=== PATIENT | female | born 1970 | race Caucasian/White ===

== ENCOUNTER → 2018-01-20 07:40 | Outpatient (CLI) | payer MEDICAID, SELFPAY ==
[2018-01-20 08:06] LABS: Basophils % 0.4 % (0.1-2.0); Eosinophils # 0.1 K/mm3 (0.0-0.4); Eosinophils % 2.2 % (0.1-12.0); Hematocrit 47.3 % (37.0-47.0); Hemoglobin 15.4 g/dL (12.2-16.2); Lymphocytes # 2.4 K/mm3 (0.7-4.5); Lymphocytes % 37.9 K/mm3 (10-50); Mean Corpuscular HGB Conc 32.6 g/dL (31.8-35.4); Mean Corpuscular Hemoglobin 29.2 pg (27.0-31.2); Mean Corpuscular Volume 89.5 fl (81-99); Mean Platelet Volume 7.4 fl (7.4-10.4); Monocytes # 0.3 K/mm3 (0.1-1.0); Monocytes % 5.3 % (1.7-9.3); Neutrophils # 3.4 K/mm3 (1.8-7.8); Neutrophils % 54.1 % (37.0-80.0); Platelet Count 370 K/mm3 (142-424); Red Blood Count 5.28 M/mm3 (4.20-5.40); Red Cell Distribution Width 12.6 % (11.5-17.5); White Blood Count 6.2 K/mm3 (4.8-10.8)
[2018-01-20 08:24] LABS: Alanine Aminotransferase 24 U/L (12-78); Albumin Level 3.6 gm/dL (3.4-5.0); Albumin/Globulin Ratio 0.9 (1.1-1.8); Alkaline Phosphatase 153 U/L (46-116); Anion Gap 10.6 mEq/L (5-15); Aspartate Amino Transferase 13 U/L (15-37); Bilirubin,Total 0.4 mg/dL (0.2-1.0); Blood Urea Nitrogen 8 mg/dL (7-18); Calcium 8.7 mg/dL (8.5-10.1); Carbon Dioxide 27 mmol/L (21.0-32.0); Chloride 105 mmol/L (98-107); Chol/HDL Ratio 4.3 (1-3.5); Cholesterol 173 mg/dL (140-200); Creatinine,Serum 0.91 mg/dL (0.55-1.02); Estimated Glomerular Filt Rate 67 ml/min (>60); Free T4 (Free Thyroxine) 0.98 ng/dl (0.76-1.46); GFR (African American) 81 ML/MIN (>60); Globulin 3.8 gm/dl (1.3-3.2); Glucose 101 mg/dL (74-106); HDL Cholesterol 40 mg/dL (29-89); LDL Cholesterol 111 mg/dL (0-130); Potassium 4.6 mmoL/L (3.5-5.1); Sodium 138 mmol/L (136-145); Thyroid Stimulating Hormone 2.53 uIU/ml (0.358-3.740); Total Protein,Serum 7.4 gm/dL (6.4-8.2); Triglycerides 108 mg/dL (30-200); VLDL Cholesterol 22 mg/dL (0-40)
== END ==
PROVIDERS: PCP Internal Medicine Adolescent Medicine; Visit Provider Nurse Practitioner Family
DX: I10 Essential (primary) hypertension (principal); F41.8 Other specified anxiety disorders; Z68.32 Body mass index [BMI] 32.0-32.9, adult
CPT/HCPCS: 36415; 80053; 80061; 84439; 84443; 85025

== ENCOUNTER → 2018-11-06 09:20 | Outpatient (CLI) | payer MEDICAID, SELFPAY ==
--- NOTE | 2018-11-06 09:23 | US_ITS ---
US transvaginal HISTORY: ITS.REASON: Pelvic Pain ORDERING PHYSICIAN: Chu Schuler MD PATIENT AGE: 48 years Comparison: None FINDINGS: There has been a prior hysterectomy. No pelvic mass apparent. The right ovary is 2 x 1.6 cm. The left ovary is 1.4 x 1.9 cm. No adnexal mass or pelvic fluid evident. IMPRESSION: Prior hysterectomy otherwise negative pelvic ultrasound
== END ==
PROVIDERS: PCP Internal Medicine Adolescent Medicine; Visit Provider Obstetrics & Gynecology
DX: R10.2 Pelvic and perineal pain (principal)
CPT/HCPCS: 76830

== ENCOUNTER → 2018-11-15 08:18 | Outpatient (CLI) | payer MEDICAID, SELFPAY ==
--- NOTE | 2018-11-15 08:20 | MM_ITS ---
MM Dig screening mamm BI w/CAD CAD Screening COMPARISON: Digital mammograms with CAD 05/20/2016 and 04/29/2015 INDICATION: There is no personal or family history of breast cancer TECHNIQUE: Standard CC and MLO images were obtained. R2 CAD reviewed. FINDINGS: Moderate diffuse heterogenic fibroglandular densities are seen throughout both breasts. There is an asymmetric glandular density lower inner quadrant of the right breast which is stable. There is a stable benign-appearing nodular density upper quadrant right breast best seen on MLO view. There is no new or suspicious lesion in either breast and there are no suspicious microcalcifications. IMPRESSION: Stable exam with no suspicious lesion seen BI-RADS Category: 2 Benign Finding(s) RECOMMENDED FOLLOW-UP: 1YR - 1 YEAR FOLLOW-UP (A letter has been sent to the patient regarding results of the study.)
== END ==
PROVIDERS: PCP Internal Medicine Adolescent Medicine; Visit Provider Obstetrics & Gynecology
DX: Z12.31 Encounter for screening mammogram for malignant neoplasm of breast (principal)
CPT/HCPCS: 77067

== ENCOUNTER → 2020-07-21 20:17 | Outpatient (CLI) | payer OTHER, SELFPAY ==
[2020-07-23 07:57] LABS: Covid-19 Nasal PCR Sendout Lex NOT DETECTED
== END ==
PROVIDERS: PCP Internal Medicine Adolescent Medicine; Visit Provider Internal Medicine Adolescent Medicine
DX: Z03.818 Encounter for observation for suspected exposure to other biological agents ruled out (principal); J06.9 Acute upper respiratory infection, unspecified; R05 Cough
CPT/HCPCS: U0004

== ENCOUNTER → 2020-09-15 12:58 | Outpatient (CLI) | payer OTHER, SELFPAY ==
[2020-09-15 13:30] VITALS: PULSE 76; PULSE 80
== END ==
PROVIDERS: PCP Internal Medicine Adolescent Medicine; Visit Provider Internal Medicine Adolescent Medicine
DX: R06.02 Shortness of breath (principal)
CPT/HCPCS: 94060; 94640; 94727; 94729

== ENCOUNTER → 2020-09-29 14:27 | Outpatient (CLI) | payer OTHER, SELFPAY ==
--- NOTE | 2020-09-29 14:29 | CA_ITS ---
APPROVED REPORT EXAM: Comprehensive 2D, Doppler, and color-flow Echocardiogram [employer] Consultant: Nakia Cota RVT Ht: 5 ft 6 in Wt: 210lbs BSA: 2.04 BP: 134/90 mmHg Indications: SOA,HTN 2D Dimensions LVOT 1.98 cm (M/F) 1.5-2.5 M-Mode Dimensions RVDd 2.58 cm (0.9-2.6) LA Diam 3.93 cm (1.9-4.0) LVDd 5.17 cm (3.5-5.7) Ao Diam 2.90 cm (2.0-3.7) LVDs 3.65 cm (3.5-5.7) IVSd 0.72 cm (0.6-1.1) PWd 0.57 cm (0.6-1.1) EF (Teich) 55.90% FS 29.40% EDV (Teich) 127.80 mL ESV (Teich) 56.30 mL LV Diastology E Decel Time 227.00 (160-240 msec) E/A Ratio 1.0 MED E' 6.30 (< 7 cm/sec) E'/MED E' Ratio 13.22 (>14) LAT E' 13.60 (<10 cm/sec) E/LAT E' Ratio 6.13 (>14) Mitral Valve MV E Max Contreras. 83.00 (40-130 cm/s) MV A Velocity 83.00 (40-130 cm/s) E/A Ratio 1.00 MV Decel. Time 227.00 (160-240 ms) MV PHT 66.00 ms Pulmonary Valve PV Peak Velocity 95.00 (50-150 cm/s) Tricuspid Valve TR P. Velocity 193.00 cm/s Left Ventricle Left atrium is normal size, left ventricle is normal size, there is no concentric left ventricular hypertrophy, visually estimated ejection fraction 55% with no regional wall motion abnormality, diastolic parameters are inconclusive. Right Ventricle Right atrium and right ventricle are normal size and contractility. Aortic Valve Aortic valve is minimally thickened and fibrosed, there is no aortic stenosis or aortic insufficiency. Mitral Valve Mitral valve is grossly normal, there is mild mitral regurgitation. Tricuspid Valve Tricuspid valve is grossly normal, there is mild tricuspid regurgitation, tricuspid regurgitation jet velocity is inadequate for calculation of the right ventricular systolic pressure. Pulmonic Valve Pulmonic valve is poorly visualized. Great Vessels Aortic root is normal size. Pericardium No significant pericardial effusion noted. Conclusion 1. Normal left ventricular size, preserved left ventricular systolic function, visually estimated ejection fraction 55% with no regional wall motion abnormality, diastolic parameters are inconclusive. 2. Mild mitral and tricuspid regurgitation. 3. No significant pericardial effusion noted. Electronically signed by : Dennis Yoder, 09/30/2020 05:45:29
== END ==
PROVIDERS: PCP Internal Medicine Adolescent Medicine; Visit Provider Internal Medicine Adolescent Medicine
DX: R06.02 Shortness of breath (principal)
CPT/HCPCS: 93306

== ENCOUNTER 2022-09-20 11:53 | Emergency (ER) | payer OTHER, SELFPAY ==
[2022-09-20 11:53] VITALS: BP 135/88; PULSE 103; RESP 18; TEMP 36.8; O2SAT 97; BMI 35.5
--- NOTE | 2022-09-20 11:55 | XR_ITS ---
FINAL REPORT CLINICAL HISTORY: fall, knee pain FINDINGS: 3 views of the right knee were obtained. There is no acute fracture or dislocation. The joint spaces are intact. There is no soft tissue abnormality. IMPRESSION: No acute process. Reviewed, Interpreted and Dictated by Zach Walsh MD Transcribed by Awais Patterson Authenticated and [facility]
--- NOTE | 2022-09-20 11:57 | HMH.EDGENADL ---
Discharge Plan Disposition Patient Disposition: Home, Self-Care Condition: Good Chief Complaint: PAIN Prescriptions Prescriptions: No Action Bariatric Multivitamins 45 mg iron- 800 mcg-120 mcg capsule PO clobetasol 0.05 % cream 1 applic TOPICAL DAILY Qty: 60 3RF Referrals Follow up/Referrals: Meek Batres MD [Primary Care Provider] - See instructions Rober Cantu JR, MD [Physician] - See instructions Clinical Impressions Clinical Impression: Knee sprain Instructions Patient Instructions: DI for Knee Sprain Discharge ED Provider: Pawan Crow General Adult HPI General Chief complaint: PAIN Stated complaint: fall Time Seen by Provider: 09/20/22 11:55 Mode of Arrival: EMS History of Present Illness HPI narrative: 52 yo/F without significant chronic medical issues, presents via EMS for right knee pain after fall off 2 steps from a ladder. Denies head strike, LOC, neck or back pain, numbness or tingling. She also reports small superficial laceration to the back of left ankle which was bandaged pre-hospital. She reports inability to bear weight on the right knee. Related Data Home Medications Medication Instructions Recorded Confirmed [id number] 45 mg-folic cap PO 12/07/21 12/15/21 acid 800 mcg-vit K 120 mcg capsule (Bariatric Multivitamins) Previous Rx's Medication Instructions Recorded clobetasol 0.05 % topical cream 1 applic topical DAILY #60 grams 12/15/21 Allergies Allergy/AdvReac Type Severity Reaction Status Date / Time No Known Allergies Allergy Unknown Uncoded 12/15/21 14:29 PFSH PFSH Social History Smoking Status: Never smoker alcohol intake: never substance use type: denies use current occupational status: employed Travel in the last 8 weeks: None ROS Obtained: Yes Systems reviewed as appropriate & no additional complaints except as documented Constitutional Constitutional: Reports system reviewed and no additional complaints, except as documented Eyes Eyes: Reports system reviewed and no additional complaints, except as documented ENT Ears, Nose, Mouth, and Throat: Reports system reviewed and no additional complaints, except as documented Cardiovascular Cardiovascular: Reports system reviewed and no additional complaints, except as documented Respiratory Respiratory: Reports system reviewed and no additional complaints, except as documented Gastrointestinal Gastrointestingal: Reports system reviewed and no additional complaints, except as documented Genitourinary Female Genitourinary: Reports system reviewed and no additional complaints, except as documented Musculoskeletal Musculoskeletal: Reports system reviewed and no additional complaints, except as documented Integumentary/Breasts Skin/Breast: Reports system reviewed and no additional complaints, except as documented Neurologic Neurologic: Reports system reviewed and no additional complaints, except as documented Endocrine Endocrine: Reports system reviewed and no additional complaints, except as documented Hematologic/Lymphatic Henatologic/Lymphatic: Reports system reviewed and no additional complaints, except as documented Allergic/Immunologic Allergic/Immunologic: Reports system reviewed and no additional complaints, except as documented Physical Exam General General appearance: alert and in no apparent distress Head Head exam: atraumatic, normocephalic and normal inspection Eye Eye exam: Present normal appearance, PERRL and EOMI ENT ENT exam: Present normal exam, normal oropharynx, mucous membranes moist, TM's normal bilaterally and normal external ear exam Neck Neck exam: Present normal inspection, full ROM and trachea midline; Absent meningismus or lymphadenopathy Chest Chest inspection: Present normal inspection and symmetric chest wall rise; Absent tenderness Respiratory Respiratory exam: Present normal lung sounds bilaterally; Absent respiratory distress
[2022-09-20 12:00] VITALS: BP 139/97; PULSE 120; RESP 18; O2SAT 97
[2022-09-20 12:38] VITALS: BP 158/94; PULSE 113; RESP 18; O2SAT 98
[2022-09-20 13:37] VITALS: BP 148/64; PULSE 70; RESP 16; TEMP 36.9; O2SAT 98
== END 2022-09-20 13:38 | disposition home or self-care (01) ==
PROVIDERS: Emergency Provider Emergency Medicine; PCP Internal Medicine Adolescent Medicine
DX: S83.90XA Sprain of unspecified site of unspecified knee, initial encounter (principal)
CPT/HCPCS: 73562; 99283

== ENCOUNTER → 2022-10-06 10:38 | Outpatient (CLI) | payer OTHER, SELFPAY ==
--- NOTE | 2022-10-06 10:46 | CA_ITS ---
FINAL REPORT TECHNIQUE: Ultrasound images of the deep venous system were obtained from the right groin to the calf veins. CLINICAL HISTORY: PT FELL FROM LADDER SEVERAL WKS AGO SPRAINED RT KNEE NOW HAVING RIGHT CALF AND RT KNEE PAIN FINDINGS: The deep venous system is normally compressible. Normal flow is identified. IMPRESSION: No evidence of right lower extremity DVT. Reviewed, Interpreted and Dictated by Yahir Quinteros III, MD Transcribed by Awais Patterson Authenticated and [facility]
== END ==
PROVIDERS: PCP Internal Medicine Adolescent Medicine; Visit Provider Internal Medicine Adolescent Medicine
DX: M25.561 Pain in right knee (principal); M79.661 Pain in right lower leg
CPT/HCPCS: 93971

== ENCOUNTER 2022-11-24 08:00 | Outpatient (RCR) | payer OTHER, SELFPAY ==
--- NOTE | 2022-10-27 11:08 | HMH.PTOPEV ---
PT Outpatient Evaluation Rehab PT Outpatient Evaluation Start: 10/27/22 09:00 Freq: Status: Active Protocol: Document 10/27/22 09:00 ARLENEGRIS (Rec: 10/27/22 11:08 ZAHRA [id number]) E-signed By Karla Tolbert, PT Outpatient Therapy Subjective History Subjective History Pt is a 52 y/o female that reports onset of right knee pain on 09/20/22 following a fall while painting a roof. Pt reports she is unsure of how she landed but denies LOC or hitting her head. Pt reports she was unable to get up and had to call an ambulance who transported her to [facility] ER. Pt reports radiographs were performed without significant findings. Pt reports she was given crutches but was unable to use them so she used her mother's walker, states she was unable to put weight through the right leg for about a month. Pt reports her knee was brusied and swollen from the mid thigh to mid calf region and still swells around the knee joint with prolonged activities. Pt denies paresthesia. Pt reports she has an appointment with her PCP about this issue today . Medical History: high blood pressure, anxiety/depression Chief Complaint Pain,Stiff,Swelling,Gives out/ Unstable Symptom Type Ache,Throb,Dull Symptoms Relieved By Rest/Positioning,Heat,Ice,OTC Meds,Shaking Symptoms Aggravated By Physical Activity,Twisting, Walking Prior Functional Limitations None Current Functional Limitations Standing,Squatting,Recreation Activity,Walking,Stairs Symptom Description Constant but Variable Level of pain today (0-10) 2 Pain scale - at its best (0-10) 0 Pain scale - at its worst (0-10) 9 Hip/Knee Eval Gait Observation General Gait Pattern Observation Antalgic Gait,Decrease Weight Bear (R) Assistive Device Assistive Devices None / NA Palpation Tenderness r
--- NOTE | 2022-11-24 08:49 | HMH.RHREAS ---
Rehab Reassessment Rehab OP Re-assessment Start: 11/24/22 07:57 Freq: Status: Active Protocol: Document 11/24/22 07:57 ZAHRA (Rec: 11/24/22 08:48 ISAELZAKIGRIS [id number]) E-signed By Karla Tolbert PT Rehab Re-assessment Subjective Subjective Pt reports she feels 98% improved since starting PT. Pt reports pain at worse as 2/10 within the last week during a prolonged car ride to/from [place] but on average has 0/ 10 right knee pain. Pt reports she is doing well with most functional activities just gets a little nervous while traversing stairs due to the nature of her injury. Objective Objective Notes R knee AROM: 0-125 RLE MMT: 03/18 grossly Assessment Progress Assessment Progressing as Expected Assessment Notes Pt has attended 5 PT visits consisting of aerobic exercise , LE stretching/strengthening, HEP and modalities with good tolerance. Pt demonstrated improved R knee AROM and RLE strength this date compared to initial evaluation. Pt met all PT goals and is appropriate to d/c to independent HEP. Patient goals met ST/4 LT/8 Goals Not Met n/a Revised Goals n/a Plan Plan Discharge to independent HEP Frequency of Therapy 0 Duration of therapy 0 Time and Billing Re-Eval Time 8 Re-Eval Billing Units 1 PHYSICIAN CERTIFICATION: I certify the specified therapy services for Johnna Wilson are required, authorized, and reviewed every 30 days.
== END 2022-11-24 08:05 | disposition home or self-care (01) ==
LOC: PT 08:00
PROVIDERS: PCP Internal Medicine Adolescent Medicine; Visit Provider Nurse Practitioner Family
DX: M25.561 Pain in right knee (principal)
CPT/HCPCS: 97010; 97014; 97110; 97163; 97164; 97530; G0283

== ENCOUNTER → 2023-10-26 15:11 | Outpatient (CLI) | payer OTHER, SELFPAY ==
--- NOTE | 2023-10-26 15:15 | XR_ITS ---
FINAL REPORT TECHNIQUE: 5 views CLINICAL HISTORY: LOW BACK PAIN Fell off of a roof a year ago, persistent low back pain. COMPARISON: None FINDINGS: There is no fracture present. There is no malalignment. There are moderate anterior osteophytes at the L2-3 level. There is moderate disc degenerative change at the L5-S1 level. IMPRESSION: No acute process. Degenerative change as described above. Reviewed, Interpreted and Dictated by Zach Walsh MD Transcribed by Shea Bernabe Authenticated and [facility]
== END ==
PROVIDERS: PCP Nurse Practitioner Family; Visit Provider Nurse Practitioner Family
DX: M54.50 Low back pain, unspecified (principal); G89.29 Other chronic pain
CPT/HCPCS: 72110

== ENCOUNTER 2023-11-09 08:28 | Outpatient (RCR) | payer OTHER, SELFPAY ==
--- NOTE | 2023-11-09 09:39 | HMH.PTOPEV ---
PT Outpatient Evaluation Rehab PT Outpatient Evaluation Start: 11/09/23 08:45 Freq: Status: Active Protocol: Document 11/09/23 08:45 ISAELANDREW (Rec: 11/09/23 09:39 ZAHRA [id number]) E-signed By Karla Tolbert, PT Outpatient Therapy Subjective History Subjective History Pt is a 53 y/o female with report of acute on chronic central low back pain due to picking up her mother from the ground after she fell in early September. Pt reports overall no change in pain since the initial onset. Pt reports pain stays localized to the central low back, denies distal symptoms. Pt denies numbness/tingling or b/ b dysfunction. Pt had a lumbar spine radiograph at [facility] on with findings of There is no fracture present. There is no malalignment. There are moderate anterior osteophytes at the L2-3 level. There is moderate disc degenerative change at the L5- S1 level. Pt reports pain is aggravated by activities that cause her to bend forward such as sweeping/mopping and lifting. Pt reports she is using prescribed lidocaine patches and OTC Tylenol Arthritis which help some. Medical History: Anxiety, Hypertension New diagnosis of cancer in past 12 No months? Chief Complaint Pain Symptom Type Ache,Sharp,Dull Symptoms Relieved By Rest/Positioning,Heat,Ice,OTC Meds Symptoms Aggravated By Bending/Stooping,Physical Activity,Lifting Prior Functional Limitations None Current Functional Limitations Lifting,Squatting,Stairs, Bending/Stooping Symptom Description Intermittent Level of pain today (0-10) 0 Pain scale - at its best (0-10) 0 Pain scale - at its worst (0-10) 5 Lumbopelvic Eval Palapation tenderness bilateral lumbar spinal tenderness Yes: L4/L5/S1 Accessory Movement L-spine Vertebrae Accessory Movements Central P/A [place] that Elicit Symptoms L4 bilateral L5 bilateral S1 bilateral Range of Motion Lumbar Spine Active Flexion Range of 90 Motion (degrees) Lumbar Spine Active Extension Range of 15 Motion (degrees) Left Lumbar Spine Lateral Flexion Active 15 Range of Motion (degrees) Right Lumbar Spine Lateral Flexion 15 Active Range of Motion (degrees) Manual Muscle Test Bilateral Knee Extension Strength Grade 5 Normal Knee Flexion Strength Grade 5 Normal Hip Flexion Strength Grade 5 Normal Hip Abduction Strength Grade 4 Good Hip Adduction Strength Grade 4 Good Hip Extension Strength Grade 4- Good- Ankle Dorsiflexion Strength Grade 5 Normal DTR Rt Patellar 2+ Lt Patellar 2+ Rt Gastroc/Soleus 2+ Lt Gastroc/Soleus 2+ Altered Sensation Bilateral Comment equal and intact to light touch sensation bilaterally Special Tests Hip Scouring (Quadrant) Test Negative Left,Negative Right Hip Maciej (ARA) Test Negative Left,Negative Right Hip Piriformis Test Negative Left,Negative Right Sciatic Nerve Tension Test Negative Left,Negative Right Unilateral Straight Leg Raise (Lasegue) Negative Left,Negative Right Test Oswestry Index Section 1 Pain Intensity The pain is mild and does not vary much Section 2 Personal Care (Washing,Dresing) change my way of washing or dressing in order to avoid pain Section 3 Lifting lifting heavy weights off the floor, but I can manage if they are Section 4 Walking I have some pain when walking but it does not increase with distance Section 5 Sitting I can sit in any chair for as long as I like Section 6 Standing I cannot stand more than 1 hour without increasing pain Section 7 Sleeping I get pain in bed, but it does not prevent me from sleeping well Section 8 Social Life My social life is normal and gives me no extra pain Section 9 Traveling I get extra pain while traveling, but it does not compel me to seek al Section 10 Changing Degreee of Pain My pain fluctuates, but overall is definitely getting better Score and Risk Level Oswestry Sc 11 Oswestry Risk Level Mild Disability Outpatient Therapy Assessment Prognosis Rehab Potential Good Clinical Impression Consistent with Diagnosis Yes Short Term Goals Number of Weeks 2 Improve Ability to Bend Yes Improve Self Care/Self Management Yes Patient to be Ind w/ HEP Yes Fpc Goals Number of Weeks 4 Increase Range of Motion Yes: Improve lumbar ext and LF AROM to at least 20 Increase Strength Yes: Improve hip strength to 5 /5 grossly to assist with function Restore Ability to Lift Objects to Waist Yes: at least 20# with proper Level mechanics to assist with ADLs & prevent reinjury Improve Ability For Household Care Yes: report ability to sweep/ mop with pain 1-2/10 or less Improve Oswestry Score Yes: Improve score to 6 or less to improve overall QOL Decrease Subjective C/O Pain Yes: Improve pain at worst to 1-2/10 to improve overall QOL Outpatient Therapy Plan of Care Treatment Plan May Include Therapeutic Exercise Including Home Yes Exercise Program Manual Therapy Techniques Yes Neuromuscular Re-education Yes Therapeutic Activities to Return to Yes Previous Functional/Work Level Gait Training Yes ADL/Self Care Education Yes Mechanical Traction Yes Dry Needling Yes Thermal Modalities Yes Electrical Stimulation Yes Ultrasound/Phonophoresis Yes Iontophoresis Yes Massage Yes Eval/Re-Eval Yes Frequency Times per week 2 Duration Number of Weeks 4 Addendums This patient is a candidate for social No or vocational rehab? Patient/Guardian verbally acknowledges Yes understanding of treatment program and consents to further treatment? Patient/Guardian verbally acknowledges Yes understanding of diagnosis, prognosis and goals for treatment? Eval Complexity PT Charges 24870 - Low Complexity Shoulder/Elbow Eval Shoulder Objective Measurements Elbow Objective Measurements PHYSICIAN CERTIFICATION: I certify the specified therapy services for Johnna Wilson are required, authorized, and reviewed every 30 days.
== END 2023-11-09 10:00 | disposition home or self-care (01) ==
LOC: PT 08:28
PROVIDERS: PCP Nurse Practitioner Family; Visit Provider Nurse Practitioner Family
DX: M54.50 Low back pain, unspecified (principal)
CPT/HCPCS: 97163

== ENCOUNTER → 2023-11-21 08:17 | Outpatient (POV) | payer OTHER, SELFPAY ==
--- NOTE | 2023-11-21 08:36 | A.OFFVIS_ITS ---
HPI Data of Consult Patient: new to practice Consult date: 11/21/23 Requesting Physician: Karla Mccurdy APRN Primary Care Provider: Elizabeth Waters APRN Consult Narrative History of present illness: Ms. Wilson is a 53 year old female who presents today as a new patient. She is a referral from [facility]. Today she rates her pain a 10 out of 10. Patient states her pain is all in her low back and this has been going on since September when she had an accident and fell off a roof. Patient states that her pain at that time had ran down her right leg in and around her knee due to the way she hit however what is bothering her now is just in her back. Patient denies any radiating symptoms into her lower extremities. Patient does state the pain is worse with certain activities such as bending, twisting or lifting. Patient does state that she has a baby at home that she can even filler picker without having severe pain. Patient has tried Tylenol along with ibuprofen, heat and ice with minimal relief. Patient has had physical therapy that did help her leg and knee symptoms however she continues to go currently for her back with no additional change. Patient does state the pain interferes with her ability perform activities of daily living such as cooking and cleaning. Patient states she can even walk the floor without having severe pain and has to sit and rest. Patient denies any previous surgery or injection history. Patient has had x-ray imaging. Patient is not on any scheduled medications. Her Eber has been reviewed and is appropriate. CC: Karla Mccurdy APRN [facility] Disclaimer: The information contained in this section may have been updated after the patient was seen, as this information can be updated by other users. Medical History (Updated 11/21/23 @ 09:28 by Karla Mccurdy APRN) Anxiety HTN (hypertension) Obesity Surgical History (Updated 11/21/23 @ 08:22 by Laure Agosto RN) H/O tubal ligation History of partial hysterectomy Family History (Updated 11/21/23 @ 08:22 by Laure Agosto RN) Other Stroke Social History (Updated 11/21/23 @ 08:23 by Laure Agosto, ARNULFO) Smoking Status: Never smoker alcohol intake: never substance use type: denies use current occupational status: unemployed Travel in the last 8 weeks: None Review of Systems Review of Systems Review of systems:: pertinent systems reviewed and negative unless documented below Review of systems (narrative): Review of Systems: General: No recent weight changes, no fever, no sleep disturbances Respiratory: No cough, no shortness of air, no recurring pulmonary infections Cardiovascular/peripheral vascular: No chest pain, no palpitations, no edema, no shortness of breath Gastrointestinal: No new onset incontinence, normal bowel movements reported Genitourinary: No new onset incontinence Musculoskeletal: Low back pain Psychiatric: [Normal mood/affect] Neurological: [Denies weakness in extremities], [denies balance issues] Meds Home Medications and Allergies Home Medications Medication Instructions Recorded Confirmed Type fqldoxnq-araxkvma-yfnh 45 mg-folic 1 cap PO DAILY SUPPLIMENT 12/07/21 11/21/23 History acid 800 mcg-vit K 120 mcg capsule (Bariatric Multivitamins) clobetasol 0.05 % topical cream 1 applic topical DAILY #60 grams 12/15/21 11/21/23 Rx meloxicam 7.5 mg tablet 7.5 mg PO DAILY #14 tabs 11/21/23 Rx New Prescriptions to Start Prescriptions: Karla Rowley Allergies Allergy/AdvReac Type Severity Reaction Status Date / Time No Known Allergies Allergy Unknown Uncoded 12/15/21 14:29 Objective Narrative: Physical Exam: General: Alert and oriented x3, no acute distress, pleasant and cooperative Lungs: Respirations even and unlabored, symmetrical chest expansion Eyes: PERRL Musculoskeletal: Flexion and extension of lumbar [spine] somewhat guarded secondary to pain, [antalgic gait noted] positive Kemps test Neurological: Speech clear, no gross sensory deficit Additional findings Additional findings: TECHNIQUE: 5 views CLINICAL HISTORY: LOW BACK PAIN Fell off of a roof a year ago, persistent low back pain. COMPARISON: None FINDINGS: There is no fracture present. There is no malalignment. There are moderate anterior osteophytes at the L2-3 level. There is moderate disc degenerative change at the L5-S1 level. IMPRESSION: No acute process. Degenerative change as described above. Reviewed, Interpreted and Dictated by Zach Walsh MD Transcribed by Shea Bernabe Authenticated and [facility] Assessment and Plan *Assessment and plan (1) Degenerative disc disease, lumbar: Status: Acute Category: Medical Code(s): M51.36 - Other intervertebral disc degeneration, lumbar region (2) Low back pain: Status: Acute Qualifiers: Back pain laterality: bilateral Chronicity: acute Sciatica presence: without sciatica Qualified Code(s): M54.50 - Low back pain, unspecified Category: Medical Code(s): M54.50 - Low back pain, unspecified (3) Lumbar spondylosis: Status: Acute Category: Medical Code(s): M47.816 - Spondylosis without myelopathy or radiculopathy, lumbar region (4) Lumbar facet arthropathy: Status: Acute Category: Medical Code(s): M47.816 - Spondylosis without myelopathy or radiculopathy, lumbar region Plan Patient continues to experience significant pain in her low back and did have limited range of motion during today's exam. Patient did also have a positive Kemps test. I have discussed with the patient that she may benefit from a lumbar medial branch block bilaterally. Risk and benefits were discussed with the patient however at this time she would like to wait. Will order the patient a compounded cream and send in a 2-week supply of meloxicam 7.5 mg daily. I have counseled the patient to take this medication with food to minimize GI up set and to discontinue all other NSAIDs while taking this medication. Patient does state in the past she has had GI upset with the ibuprofen 800 mg. I have counseled her to contact our office between now and her next visit if she needs additional refills on the 2-week dose of meloxicam. Patient will return to clinic in 1 month following her imaging for reevaluation of symptoms and plan of care. Patient has been instructed to contact the clinic with any concerns before the next appointment. Dr. Yancey has reviewed this note and agrees with this plan of care. This note was dictated using voice recognition software and make contain errors or omissions.
[2023-11-21 08:57] VITALS: BP 137/88; PULSE 94; RESP 18; O2SAT 99; BMI 35.5
== END | disposition home or self-care (01) ==
PROVIDERS: PCP Nurse Practitioner Family; Visit Provider Nurse Practitioner Family
DX: M51.36 Other intervertebral disc degeneration, lumbar region (principal); M47.816 Spondylosis without myelopathy or radiculopathy, lumbar region
CPT/HCPCS: 99202; G0463

== ENCOUNTER 2023-12-14 14:48 | Outpatient (CLI) | payer OTHER, SELFPAY ==
--- NOTE | 2023-12-14 14:54 | MR_ITS ---
FINAL REPORT TECHNIQUE: Multiplanar MR without gadolinium enhancement CLINICAL HISTORY: LBP X MONTHS COMPARISON: None FINDINGS: Sagittal images show normal vertebral height. Alignment is normal. Marrow signal pattern is unremarkable. The bony canal is diffusely smaller than normal, likely congenital. L1-2: No evidence of canal stenosis or neural foraminal narrowing. L2-3: There is a minimal annular bulge present, which produces borderline canal stenosis. L3-4: There is a minimal annular bulge present, with mild facet overgrowth. There is mild canal stenosis. L4-5: A small annular bulge is present with mild facet arthropathy and mild canal stenosis. L5-S1: There is a small left lateral disc protrusion, with mild facet arthropathy and mild bilateral neural foraminal narrowing. IMPRESSION: There are mild diffuse degenerative changes, combined with a small canal which produces multilevel mild canal stenosis and neuroforaminal narrowing. Reviewed, Interpreted and Dictated by Zeus Bailey MD Transcribed by Shea Bernabe Authenticated and [facility]
== END 2023-12-14 23:59 ==
LOC: RAD 14:50
PROVIDERS: PCP Nurse Practitioner Family; Visit Provider Nurse Practitioner Family
DX: M54.50 Low back pain, unspecified (principal)
CPT/HCPCS: 72148; 76376

== ENCOUNTER 2024-01-05 13:49 | Outpatient (POV) | payer OTHER, SELFPAY ==
--- NOTE | 2024-01-05 14:38 | A.OFFVIS_ITS ---
[facility] Pain Management SOAP Note Subjective:: Patient is a pleasant 53-year-old female who presents today for follow-up of lumbar MRI. We are currently treating the patient for low back pain, lumbar facet arthropathy. Today she rates her pain a 6 out of 10. Patient denies any new trauma or injury. She states she continues to have pain in and around her low back that is worse with certain positioning such as bending, twisting or lifting. Patient does state that the compounded cream that was sent to her at our last visit has been helping and that she is needing additional refills. Patient states however the meloxicam 7.5 mg daily that we sent in did not really seem to make much improvement. Patient does state that this is an aching, throbbing sensation that is worse with increased activity. She states the pain does interfere with her ability to perform activities of daily living. Her Eber has been reviewed and is appropriate. Review of Systems: General: No recent weight changes, no fever, no sleep disturbances Respiratory: No cough, no shortness of air, no recurring pulmonary infections Cardiovascular/peripheral vascular: No chest pain, no palpitations, no edema, no shortness of breath Gastrointestinal: No new onset incontinence, normal bowel movements reported Genitourinary: No new onset incontinence Musculoskeletal: Low back pain Psychiatric: [Normal mood/affect] Neurological: [Denies weakness in extremities], [denies balance issues] Objective:: Physical Exam: General: Alert and oriented x3, no acute distress, pleasant and cooperative Lungs: Respirations even and unlabored, symmetrical chest expansion Eyes: PERRL Musculoskeletal: Flexion and extension of lumbar [spine] somewhat guarded secondary to pain, [antalgic gait noted] positive Kemps test Neurological: Speech clear, no gross sensory deficit Assessment:: Degenerative disc disease of lumbar spine with lumbar facet arthropathy, lumbar spinal stenosis Plan:: Patient continues to experience significant pain in her low back with limited range of motion of her lumbar spine and a positive Kemps test. I have discussed with patient that she may benefit from a lumbar medial branch block. Risk and benefits were discussed with patient however at this time she would like to wait. I have counseled the patient that she can call and schedule this injection over the phone if she changes her mind between now and her next visit. I will send in a prescription of baclofen 5 mg 3 times daily and meloxicam 15 mg daily with a 1 month supply of these medications. Patient will return to clinic in 1 month for reevaluation of symptoms and plan of care. Patient has been instructed to contact the clinic with any concerns before the next appointment. Dr. Yancey has reviewed this note and agrees with this plan of care. This note was dictated using voice recognition software and make contain errors or omissions. [facility] Disclaimer: The information contained in this section may have been updated after the patient was seen, as this information can be updated by other users. Medical History (Updated 11/21/23 @ 09:28 by Karla Mccurdy APRN) Anxiety HTN (hypertension) Obesity Surgical History (Updated 11/21/23 @ 08:22 by Laure Agosto RN) H/O tubal ligation History of partial hysterectomy Family History (Updated 11/21/23 @ 08:22 by Laure Agosto RN) Other Stroke Social History (Updated 11/21/23 @ 08:23 by Laure Agosto RN) Smoking Status: Never smoker alcohol intake: never substance use type: denies use current occupational status: unemployed Travel in the last 8 weeks: None
[2024-01-05 15:35] VITALS: BP 153/99; PULSE 87; RESP 18; O2SAT 97; BMI 35.5
== END 2024-01-05 23:59 | disposition home or self-care (01) ==
PROVIDERS: PCP Nurse Practitioner Family; Visit Provider Nurse Practitioner Family
DX: M51.36 Other intervertebral disc degeneration, lumbar region (principal); M47.816 Spondylosis without myelopathy or radiculopathy, lumbar region; M48.061 Spinal stenosis, lumbar region without neurogenic claudication
CPT/HCPCS: 99212; G0463

== ENCOUNTER 2024-05-25 14:11 | Outpatient (CLI) | payer OTHER, SELFPAY ==
--- NOTE | 2024-05-25 14:16 | MM_ITS ---
PROCEDURE INFORMATION: Exam: MG Bilateral Screening 3D Mammography Exam date and time: 05/25/2024 2:00 PM Age: 53 years old Clinical indication: Screening examination TECHNIQUE: Imaging protocol: Bilateral Screening tomosynthesis and 2D mammography including computer-aided detection (CAD) when performed. COMPARISON: 1. MG MM DIG SCREENING MAMM BI W/CAD 05/25/2024 2:00 PM 2. MG SCBI MM Dig screening mamm BI w/CAD 11/15/2018 8:36 AM 3. MG DMSB DIG MAMM-SCREEN JOSE 05/20/2016 4:11 PM FINDINGS: MAMMOGRAPHY: Breast composition: There are scattered areas of fibroglandular density. Mass: No suspicious masses. Architectural distortion: No suspicious distortion. Calcifications: No suspicious calcifications. Asymmetric density: None. Skin thickening: None. Axillary adenopathy: None. IMPRESSION: No mammographic evidence of malignancy. Annual screening is recommended unless otherwise clinically indicated. ASSESSMENT: BI-RADS Category 1: Negative
== END 2024-05-25 23:59 | disposition home or self-care (01) ==
LOC: RAD 14:12
PROVIDERS: PCP Nurse Practitioner Family; Visit Provider Nurse Practitioner Family
DX: Z12.31 Encounter for screening mammogram for malignant neoplasm of breast (principal); Z82.49 Family history of ischemic heart disease and other diseases of the circulatory system
CPT/HCPCS: 77063; 77067

== ENCOUNTER 2024-06-11 07:26 | Outpatient (CLI) | payer OTHER, SELFPAY ==
--- NOTE | 2024-06-11 07:29 | US_ITS ---
FINAL REPORT CLINICAL HISTORY: FH: ABDOMINAL AORTIC ANEURYSM FINDINGS: Sonographic images were obtained of the abdominal aorta. The abdominal aorta measures up to 1.6 cm in greatest dimensions. The common iliac arteries are within normal limits. IMPRESSION: No evidence of aortic aneurysm. Reviewed, Interpreted and Dictated by Nicole Mckeon MD Transcribed by Lorraine Greenfield Authenticated and [facility]
== END 2024-06-11 23:59 | disposition home or self-care (01) ==
LOC: RAD 07:26
PROVIDERS: PCP Nurse Practitioner Family; Visit Provider Nurse Practitioner Family
DX: Z82.49 Family history of ischemic heart disease and other diseases of the circulatory system (principal)
CPT/HCPCS: 76770

== ENCOUNTER 2024-11-23 13:22 | Emergency (ER) | payer OTHER, SELFPAY ==
--- NOTE | 2024-11-23 13:35 | ED_ITS ---
Discharge Plan Disposition Patient Disposition: Home, Self-Care Condition: Good Prescriptions Prescriptions: New phenazopyridine 200 mg Tablet 200 mg PO TID 2 Days Qty: 6 0RF ibuprofen 600 mg tablet 600 mg PO Q6HP PRN (Reason: Mild Pain) Qty: 30 0RF ondansetron 4 mg Tablet,Disintegrating 4 mg PO Q8H PRN (Reason: Nausea) Qty: 12 0RF nitrofurantoin monohyd/m-cryst [Macrobid] 100 mg Capsule 100 mg PO BID Qty: 10 0RF Rx Instructions: must administer with a meal/food No Action amantadine HCl 100 mg tablet 100 mg PO DAILY lisinopril-hydrochlorothiazide 20-12.5 mg tablet 1 tab PO DAILY Referrals Follow up/Referrals: Elizabeth Waters APRN [Primary Care Provider] - See instructions Activity Restrictions/Add. Instructions Additional Instructions/Restrictions: Drink plenty of fluids. Take tylenol or ibuprofen for pain or fever. Take the medications as directed. Take the zofran (ondesetron) as directed if you have nausea/vomiting. Follow up with your regular doctor. GO TO THE ER FOR ANY WORSENING SYMPTOMS The pyridium will make your urine turn orange, this is an expected side effect. It will stain your clothes if it comes into contact with them. We will culture the urine. That will tell what bacteria is causing your infection and which antibiotics will treat it best.This test takes 3 days to complete. Clinical Impressions Clinical Impression: UTI (urinary tract infection) Instructions Patient Instructions: Urine Culture, DI for Urinary Tract Infection (UTI), Phenazopyridine Print Language Print Language: Greenlandic Discharge ED Provider: Damian Ma [facility] General Stated complaint: poss uti Time Seen by Provider: 11/23/24 13:35 History of Present Illness Provider Complaint: She states that for the past 3 days she has had dysuria, low back pain, urinary frequency and hesitancy. In the past she has had these symptoms when she had a UTI. She denies any fever/chills, but she states that she has been feeling bad. She has had some nausea also. Related Data Home Medications ?Medication ?Instructions ?Recorded ?Confirmed amantadine HCl 100 mg tablet 100 mg PO DAILY 11/23/24 11/23/24 lisinopril 20 1 tab PO DAILY 11/23/24 11/23/24 mg-hydrochlorothiazide 12.5 mg tablet Previous Rx's ?Medication ?Instructions ?Recorded ibuprofen 600 mg tablet 600 mg PO Q6HP PRN Mild Pain #30 11/23/24 tabs nitrofurantoin 100 mg PO BID #10 caps 11/23/24 monohydrate/macrocrystals 100 mg capsule (Macrobid) ondansetron 4 mg disintegrating 4 mg PO Q8H PRN Nausea #12 tabs 11/23/24 tablet phenazopyridine 200 mg tablet 200 mg PO TID 2 days #6 tabs 11/23/24 Allergies Allergy/AdvReac Type Severity Reaction Status Date / Time No Known Allergies Allergy Verified 11/23/24 13:53 [facility] Disclaimer: The information contained in this section may have been updated after the patient was seen, as this information can be updated by other users. Medical History (Updated 11/23/24 @ 14:30 by Damian Ma APRN) Obesity Anxiety HTN (hypertension) Surgical History (Updated 11/21/23 @ 08:22 by Laure Agosto RN) H/O tubal ligation History of partial hysterectomy Family History (Updated 11/21/23 @ 08:22 by Laure Agosto RN) Other Stroke Social History (Updated 11/21/23 @ 08:23 by Laure Agosto RN) Smoking Status: Never smoker alcohol intake: never substance use type: denies use current occupational status: unemployed Travel in the last 8 weeks: None Have you lived/traveled outside US in past 30 days?: No Contact w/someone who lives/traveled outside US past 30 days?: No Exposure to someone with infectious disease in past 14 days?: No Do you have a fever (greater than 100.4 F or 38 C)?: No Have you tested positive for COVID-19: No Exposed to someone with COVID-19 in past 14 days?: No Do you have a sore throat?: No Do you have a cough?: No Do you have any weakness?: No Do you have any diarrhea?: No Are you experiencing any unusual bleeding?: No Do you have any muscle aches/pain?: No Do you have any abdominal pain?: No Are you experiencing loss of taste or smell?: No ROS Obtained: Yes All systems reviewed & no additional complaints except as documented Constitutional Constitutional: Reports system reviewed and no additional complaints, except as documented, Denies chills and Denies fever(s) Eyes Eyes: Denies eye discharge ENT Ears, Nose, Mouth, and Throat: Denies dysphagia, Denies sore throat and Denies throat swelling Cardiovascular Cardiovascular: Denies chest pain and Denies dyspnea Respiratory Respiratory: Denies chest congestion, Denies cough and Denies dyspnea Gastrointestinal Gastrointestingal: Denies abdominal pain, constipation, diarrhea, dysphagia, nausea or vomiting Genitourinary Female Genitourinary: Reports as per HPI, Reports dysuria, Reports urinary frequency, Denies urinary incontinence, Reports urinary hesitancy and Reports urinary urgency Musculoskeletal Musculoskeletal: Denies arthralgias and Reports back pain Integumentary/Breasts Skin/Breast: Denies rash Neurologic Neurologic: Denies paresthesias Allergic/Immunologic Allergic/Immunologic: Denies throat swelling Physical Exam General General appearance: alert and in no apparent distress Head Head exam: atraumatic and normocephalic Eye Eye exam: Present normal appearance, PERRL and EOMI ENT ENT exam: Present normal exam, mucous membranes moist, TM's normal bilaterally and normal external ear exam Neck Neck exam: Present normal inspection, full ROM and trachea midline; Absent tenderness, meningismus or lymphadenopathy Chest Chest inspection: Present normal inspection and symmetric chest wall rise; Absent tenderness Respiratory Respiratory exam: Present normal lung sounds bilaterally; Absent respiratory distress, wheezes or stridor Cardiovascular Cardiovascular exam: Present regular rate, normal rhythm and normal heart sounds Abdominal Exam Abdominal exam: Present soft and normal bowel sounds; Absent distention, tenderness, guarding, rebound, rigidity, incision, psoas sign, obturator sign, heel tap sign, Fuentes's sign, Rovsing's sign or tenderness at McBurney's Point Extremities Exam Extremities exam: Present normal inspection, full ROM and normal capillary re fill; Absent tenderness, edema, joint swelling, calf tenderness or cyanosis Back Exam Back exam: Present normal inspection and full ROM; Absent tenderness, CVA tenderness (R) or CVA tenderness (L) Neurological Exam Neurological exam: Present alert, oriented X3 and normal gait Psychiatric Psychiatric exam: Present normal affect and normal mood Skin Skin exam: Present warm, dry, intact and normal color Lymphatic Lymphatic Findings: no adenopathy Medical Decision Making Medical Records Medical records reviewed: No I reviewed the patient's medical records. Screening: Per USPSTF and CDC recommendations, given the prevalence of disease in our region, it is our hospital?s policy to screen for HIV and viral Hepatitis for all patients aged 18 and over and those with ongoing risk factors. Eber Inquiry Pt receiving controlled substance: No Lab Data Lab results reviewed: Yes I reviewed the patient's lab results.
[2024-11-23 13:40] VITALS: BP 144/92; PULSE 100; RESP 20; TEMP 36.8; O2SAT 99; BMI 35.5
[2024-11-23 13:44] LABS: Apearance,Urine Cloudy (Clear); Bilirubin,Urine Negative (Negative); Blood, Urine 1+ (Negative); Color,Urine Dark Yellow (Yellow); Glucose,Urine (UA) Negative (Negative); Ketones,Urine Negative (Negative); Protein,Urine Trace (Negative); Urobilinogen,Urine 0.2 EU/dl (0.2)
[2024-11-23 13:45] LABS: UTC Leukocyte Esterase,Urine Trace (Negative); UTC Nitrate,Urine Negative (Negative)
[2024-11-23 14:35] VITALS: BP 144/92; PULSE 100; RESP 20; TEMP 36.8; O2SAT 99
--- NOTE | 2024-11-26 09:35 | PC.NURSE ---
URINE CULTURE REVIEWED BY Rogelio MEJIAS APRN, NO CHANGES NEEDED AT THIS TIME
== END 2024-11-23 14:38 | disposition home or self-care (01) ==
PROVIDERS: Emergency Provider Nurse Practitioner Family; PCP Nurse Practitioner Family
DX: N39.0 Urinary tract infection, site not specified (principal)
CPT/HCPCS: 81003; 87086; 87088; 87186; 99213; G0381